=== PATIENT | female | born 1965 | race African-American/Black ===

== ENCOUNTER 2018-06-08 09:51 | Emergency (ER) | payer OTHER, SELFPAY ==
[2018-06-08 09:52] VITALS: BP 117/82; PULSE 76; RESP 18; TEMP 36.6; O2SAT 99; BMI 29.4
--- NOTE | 2018-06-08 10:18 | RAD_ITS ---
STUDY: X-RAY - LEFT KNEE REASON FOR EXAM: Female, 53 years old. Left-sided knee pain after twisting injury last evening. TECHNIQUE: 4 view(s) of the knee. COMPARISON: Prior comparison studies are not available for review at this time. FINDINGS: Normal visualized distal femur. Normal visualized proximal tibia and fibula. Normal proximal tibiofibular articulation. There is no demonstrated fracture. Normal medial femorotibial compartment. Normal lateral femorotibial compartment. Normal patellofemoral articulation. There is no demonstrated joint effusion. The soft tissue structures are unremarkable. RAD/Knee 4 or More Views IMPRESSION: No radiographic evidence for acute fracture. If there is still clinical concern for acute fracture, follow-up radiographs in 7-10 days maybe helpful in evaluating a healing radiographically occult fracture. Electronically Signed: Cinthya Garcia MD at 10:51 EDT , Service support ,
--- NOTE | 2018-06-08 10:29 | ED.DCSUM_ITS ---
History of Present Illness Chief Complaint: Lower Extremity Injury Informant: Patient Onset: Yesterday Context: Sudden Onset Timing: Continuous Quality: ache Location: left knee Current Severity: Moderate Maximum Severity: Severe Worsened by: moving/WBing Relieved by: remaining still Associated Symptoms: none Narrative: Tripped on a basketball accidentally last night, twisting her knee. She did not fall onto it or injure anything else. Since then she has had significant difficulty walking. Prior knee pain but nothing like this. No prior surgery on it. She states majority of the pain is popliteal. She does not describe any deformity. Past Medical History - Allergies and Home Meds Allergies/Adverse Reactions: Allergies orphenadrine citrate [From Norflex] Allergy (Verified 06/08/18 09:53) Chest tightness Penicillins Allergy (Verified 06/08/18 09:53) Unknown Primary Care Physician: Care Physician,No Primary [NON-STAFF] - Smoking Status: Current every day smoker Review of Systems Musculoskeletal: Reports: Extremity Pain - Left knee. Denies: Back pain, Swelling Skin: Denies: Rash Neurological: Denies: Headache, Weakness, Parasthesia, Numbness Physical Exam Vital Signs/Narrative: Vital Signs Temp Pulse Resp BP Pulse Ox 06/08/18 09:52 98 F 76 18 117/82 H 99 Inital Vital Signs reviewed: Yes General: Well nourished, Well developed Head: Normocephalic, Atraumatic Cardiovascular: - - Strong 2+ dorsalis pedis pulses bilaterally. Extremities: Tenderness - Throughout popliteal fossa left knee, nonfocal, including hamstring tendons. No bony tenderness., - - No left knee effusion. Extensor mechanism intact, but is more painful to perform. Able to extend her completely, passively. All ligaments are intact and stable without pain or laxity on stressing including a negative John. Limited active range of josef on to significant degree due to pain. Skin: Normal color, No rash Neurological: Alert, Oriented x3, Cranial nerves II-XII grossly intact, Normal Strength, Normal Sensation Psychological: Normal affect Diagnostic/Tx/Re-eval Clinical Impression(s) from Imaging Studies Knee X-Ray 06/08/18 10:18 IMPRESSION: No radiographic evidence for acute fracture. If there is still clinical concern for acute fracture, follow-up radiographs in 7-10 days maybe helpful in evaluating a healing radiographically occult fracture. Electronically Signed: Cinthya Garcia MD at 10:51 EDT , Service support , - Medical Decision Making X-rays are unremarkable. No focal ligament concern at this time. She hence at the possibility of having a Benz's cyst in the past, but she does not remember what it was called, it is possible that she ruptured a Benz's cyst. Emergent ultrasound is not indicated at this time, it is also possible that she injured the meniscus. I recommend supportive care along with rest, ice, NSAIDs, and close outpatient follow-up, she has seen orthopedics Dr. Walsh. She is given an Henry wrap and declines crutches saying that she has access to some. Given h istory, I do not have specific concern for a knee dislocation. ED Disposition - Plan for ED Patient: Disposition: Home or Assisted Living Chief Complaint: Lower Extremity Injury Diagnosis: Left knee sprain Instructions: ED Sprain Knee Prescriptions: Hydrocodone Bitart/Apap 5-325 [[facility] 5MG-325MG] 1 tab PO Q4H PRN PRN 2 Days #10 tab PRN Reason: Pain Referrals: Jorge Walsh MD [STAFF PHYSICIAN] - 1-2 Weeks
[2018-06-08 12:14] VITALS: BP 118/75; PULSE 75; RESP 16; O2SAT 98
== END 2018-06-08 12:15 | disposition home or self-care (01) ==
PROVIDERS: Emergency Provider Emergency Medicine; Family Provider Physician Assistant; PCP Physician Assistant
DX: S83.92XA Sprain of unspecified site of left knee, initial encounter (principal); X50.1XXA Overexertion from prolonged static or awkward postures, initial encounter; Y93.67 Activity, basketball; Y92.9 Unspecified place or not applicable; Y99.9 Unspecified external cause status; F17.200 Nicotine dependence, unspecified, uncomplicated; Z79.84 Long term (current) use of oral hypoglycemic drugs; Z79.899 Other long term (current) drug therapy
CPT/HCPCS: 73564; 99282

== ENCOUNTER 2019-04-02 00:53 | Observation (INO) | payer OTHER, SELFPAY ==
[2019-04-02] VITALS (9 sets, daily range): BP systolic 120–148; BP diastolic 66–79; PULSE 64–79; RESP 13–18; TEMP 36.4–36.6; O2SAT 96–100; BMI 30.9; BMI 29.4; BMI 31.0
--- NOTE | 2019-04-02 00:59 | EKG12_ITS ---
Test Reason : CP Blood Pressure : / mmHG Vent. Rate : 077 BPM Atrial Rate : 077 BPM P-R Int : 170 ms QRS Dur : 082 ms QT Int : 370 ms P-R-T Axes : 070 014 -05 degrees QTc Int : 418 ms Normal sinus rhythm Normal ECG Confirmed by DONNA KILLIAN ([id number]), graphics editor ALBERT CHA ([id number]) on 04/02/2019 2:30:42 PM Referred By: Minh Croft Confirmed By:DONNA KILLIAN
--- NOTE | 2019-04-02 00:59 | RAD_ITS ---
STUDY: X-RAY CHEST REASON FOR EXAM: Female, 54 years old. Chest pain TECHNIQUE: Single AP portable view of the chest. COMPARISON: None. FINDINGS: The lungs are clear and expanded. There is no demonstrated pleural abnormality. Normal size heart. Normal mediastinum and sudha. Normal visualized pulmonary arteries. Normal visualized aortic arch and descending thoracic aorta. Normal visualized thoracic spine. There is degenerative osteoarthritis of the bilateral shoulders. There is no demonstrated abnormality of the visualized soft tissue structures of the upper abdomen. RAD/Chest 1 View (Portable) IMPRESSION: Normal x-ray examination of the chest. Electronically Signed: Giuliana Wright, at 2:33 EDT Tel , Service support ,
[2019-04-02 01:10] LABS: Absolute Lymphocyte Count 4.99 X10^3/uL (0.83-4.51); Absolute Neutrophil Count 5.8 X10^3/uL (2.0-7.7); Basophil# 0.05 X10^3/uL; Basophil% 0.4 % (0-1); Eosinophils% 1.7 % (0-5); Hematocrit 42.3 % (37-47); Hemoglobin 14.2 g/dL (12.0-15.0); Lymphocyte # 4.99 X10^3/ul (4.0); Lymphocyte % 41.3 % (19-41); Mean Corp Hgb Conc 33.6 g/dL (32-36); Mean Corpuscular Volume 89.4 fL (81-99); Mean Platelet Vol. 8.8 fl (6.2-12.0); Monocyte# 0.97 X10^3/uL; NRBC Flagged by Analyzer 0 % (0-5); Neutrophil # 5.84 X10^3/uL (2.7-7.7); Neutrophil % 48.3 % (47-70); Platelet Count 337 K/mm3 (150-450); RBC Distribution Width CV 11.9 % (11.6-14.6); RBC Distribution Width SD 38.9 fl (35.1-43.9); Red Blood Count 4.73 M/mm3 (4.2-5.4); White Blood Count 12.1 K/mm3 (4.4-11.0)
[2019-04-02 01:33] LABS: Anion Gap 5 (5-15); BUN 7 mg/dL (7-18); BUN/Creat Ratio 7.9 RATIO (10-20); Calcium,Total 9.6 mg/dL (8.5-10.1); Chloride 105 mmol/L (98-107); Creatinine, Serum 0.89 mg/dL (0.55-1.02); EST Glomerular Filtration Rate 70 mL/min (>60); Est Glom Filt Rate - Afr Amer 85 mL/min (>60); Estimated Creatinine Clearance 76.32 ml/min; Glucose 143 mg/dL (74-106); Potassium 3.6 mmol/L (3.5-5.1); Sodium Level 139 mmol/L (136-145)
[2019-04-02] MEDS: Aspirin 325 MG Tablet PO (01:35)
--- NOTE | 2019-04-02 02:44 | PCM.HP.STD ---
Problem List (1) Chest pain Status: Acute History of Present Illness Date of Admission: 04/02/19 Chief Complaint: chest pain The patient is a 54 year old F with a significant history of hypertension; diabetes mellitus; seasonal allergy who presented to the emergency department with excruciating progressively worsening substernal chest pain that started while watching TV. Her symptoms started about 1/2-hour prior to presentation. Her chest pain was nonradiating. She denies any ameliorating or aggravating factors. Associated with her symptoms is nausea without vomiting; and diaphoresis. At the emergency department patient was given 325 mg of aspirin. Her chest pains had subsided to 2 out of 10 at the emergency department. Past Medical History Medical History: Medical History (Last Reviewed 04/02/19 @ 05:13 by Minh Croft MD) Type 2 diabetes mellitus E11.9 Hypertension I10 Allergies orphenadrine citrate [From Norflex] Allergy (Verified 04/02/19 00:54) Chest tightness Penicillins Allergy (Verified 04/02/19 00:54) Unknown Home Medications: Ambulatory Orders Medication Instructions Recorded Atenolol [Tenormin] 50 mg PO DAILY 08/14/15 Gabapentin [Neurontin] 100 mg PO QHS PRN PRN 08/14/15 Loratadine [Claritin] 10 mg PO DAILY 08/14/15 Potassium Chloride [K-Dur] 10 meq PO BID 08/14/15 Pravastatin [Pravachol] 20 mg PO DAILY 08/14/15 metFORMIN HCl [Glucophage] 500 mg PO DAILY 08/14/15 Surgical History: hysterectomy Lives: With Family Smoking Status: Never smoker - Patient smokes for about 1 week;never again - *Family History Maternal History Items: Diabetes, - - His brother has sarcoidosis Paternal History Items: - - Patient did not know her paternal medical history. Review of Systems Constitutional: Denies: Chills, Fever, Weight Change HEENT: Denies: Head Aches, Sinus Congestion, Sinus Drainage Cardiovascular: Reports: Chest Pain. Denies: Palpitations Respiratory: Denies: Cough, Shortness of breath at rest, Sputum production Gastrointestinal: Reports: Nausea. Denies: Abdominal Pain, Vomiting Genitourinary: Denies: Dysuria Musculoskeletal: Denies: Joint Pain, Joint Tenderness Skin: Denies: Rash, Wounds Neurological: Denies: Numbness, Tingling, Focal weakness Psychiatric: Denies: Anxiety, Depression, Homicidal Ideations, Suicidal Ideations Hematologic/ Lymphatic: Denies: Easy Bruising, Easy Bleeding VTE Information - Inpt Only VTE Present on Admission: No VTE Mechan Device Prophylaxis: None VTE Pharm Prophylaxis ordered?: Yes - Physical Exam General: Alert, Oriented x3, Cooperative HEENT: Atraumatic, PERRLA, EOMI, Normocephalic Neck: Supple, No JVD, Negative Carotid Bruits Lungs: Clear to auscultation, Normal air movement Cardiovascular: Regular rate, No murmurs Abdomen: Bowel Sounds Present, Soft, Non Tender Extremities: No edema, Capillary Refill Less than 3 Seconds Skin: No rashes, No breakdown Musculoskeletal: No Tenderness to Palpation of Joints or Extremities Neurological: Cranial nerves II-XII grossly intact Psych/Mental Status: Normal Affect, Appropriate Vital Signs Temp Pulse Resp BP Pulse Ox 97.9 F 70 13 136/79 H 96 04/02/19 00:54 04/02/19 02:20 04/02/19 02:20 04/02/19 02:23 04/02/19 02:20 Oxygen Flow Rate (L/min) 2 Oxygen Delivery Method Room Air Weight: 97.9 kg Body Mass Index (BMI) 30.9 Laboratory Tests Past 24 Hrs 04/02/19 04/02/19 01:03 01:03 WBC 12.1 H RBC 4.73 Hgb 14.2 Hct 42.3 MCV 89.4 MCH 30.0 MCHC 33.6 RDW Std Deviation 38.9 RDW Coeff of Alejandro 11.9 Plt Count 337 MPV 8.8 Immature Gran % (Auto) 0.300 Neut % (Auto) 48.3 Lymph % (Auto) 41.3 H [place] % (Auto) 8.0 Eos % (Auto) 1.7 Baso % (Auto) 0.4 Absolute Neuts (auto) 5.8 Absolute Lymphs (auto) 4.99 H Nucleated RBC % 0 Sodium 139 Potassium 3.6 Chloride 105 Carbon Dioxide 29.0 Anion Gap 5 BUN 7 Creatinine 0.89 Estim Creat Clear Calc 76.32 Est GFR (MDRD) Af Amer 85 Est GFR (MDRD) Non-Af 70 BUN/Creatinine Ratio 7.9 L Glucose 143 H Calcium 9.6 Troponin I < 0.015 Assessment/Plan All Active Problems (Last Updated 04/02/19 @ 03:32 by Minh Croft MD) Chest pain (Acute) The patient is a 54 year old F with a significant history of hypertension; diabetes mellitus; seasonal allergy who presented to the emergency department with excruciating progressively worsening substernal chest pain . Chest pain Admit to a monitored bed on pcu CXR independently reviewed confirms no acute cardiopulmonary process. EKG independently reviewed confirms sinus rhythm Received aspirin 325 mg in the emergency department. ASA 81 mg p.o. daily Morphine as needed for pain We will check lipid panel. Home statin continued Serial cardiac enzymes Stat EKG as needed for chest pain Treadmill stress test in the AM if the cardiac enzymes are negative. Hold atenolol for stress test. Leukocytosis: on presentation her white count was 12.1. Likely reactive. Hyperlipidemia Pravachol continued History of hypokalemia Home potassium chloride continued. On presentation his potassium is 3.6. We will give an extra dose of 20 mg of potassium x1. Seasonal allergies Claritin continued Neuropathy Neurontin continued Hypertension Presentation her blood pressure was not within goal. Continue home atenolol but hold for stress test. PRN hydralazine ordered. Trend blood pressure and adjust blood pressure medication. Diabetes mellitus On presentation her blood glucose on BMP was 143. Patient reports that his last A1c was 2 to 3 weeks ago and it was 6.5. Hold metformin since it is too early in admission. Check Accu-Chek every 6 hours. Consider insulin regimen if blood glucose is elevated. DVT prophylaxis Subcutaneous Lovenox ordered Code Visit OBSV E&M: 57442 Initial observation care L3
--- NOTE | 2019-04-02 02:55 | ED.VISSUMM ---
- ER Visit Summary Date of Service: 04/02/19 Chief Complaint: Chest pain History of Present Illness: The patient is a 54 F presenting with chest pain that started half hour prior to arrival. Patient has midsternal chest pain with no radiation. She denies shortness of breath. She has associated diaphoresis. She was resting when this started. She denies PE/DVT risk factors. She is a diabetic. She is a non-smoker. Denies other complaints. Physical Examination: Vitals are stable. Patient is afebrile. Alert no acute distress. HEENT exam is unremarkable. Neck is supple. Lungs are clear and equal bilaterally. Heart is regular rate and rhythm. Abdomen is soft nontender nondistended. Extremities are unremarkable. Skin is warm and dry. No focal neurologic deficit. Remainder of exam is unremarkable. Emergency Department Course and Treatment: Patient was given aspirin on arrival. EKG is sinus rhythm rate of 77 with no acute ischemic changes. Chest x-ray shows no acute process. CBC shows white count 12.1. Chemistries show glucose 143. Troponin is negative. On reevaluation patient's pain has improved. Discussed with the hospitalist for observation. Disposition: Observation Impression: Chest pain This note was generated with [employer] dictation software. It may contain incorrect words, spelling, and punctuation that were not noted in review of the chart prior to signing ED Disposition - Plan for ED Patient: Referrals: Max Arizmendi PA [Primary Care Provider] -
--- NOTE | 2019-04-02 03:25 | EKG12_ITS ---
Test Reason : CP ADMISSION Blood Pressure : / mmHG Vent. Rate : 061 BPM Atrial Rate : 061 BPM P-R Int : 194 ms QRS Dur : 086 ms QT Int : 404 ms P-R-T Axes : 031 005 003 degrees QTc Int : 406 ms Normal sinus rhythm Minimal voltage criteria for LVH, may be normal variant Nonspecific ST and T wave abnormality Confirmed by MARY GREENFIELD, INGRID ([id number]), web editor CONTRERAS SPRINGER ([id number]) on 04/04/2019 9:13:19 AM Referred By: Minh Croft Confirmed By:INGRID HERNANDEZ MD
[2019-04-02 05:11] LABS: Cholesterol 162 mg/dL (200); High Density Lipoprotein 46 mg/dL; Triglycerides 192 mg/dL; Very Low Density Lipoprotein 38 mg/dL (5-40)
[2019-04-02 06:06] LABS: Bedside Glucose 134 mg/dL (70-110)
--- NOTE | 2019-04-02 10:00 | STRESSREP ---
Stress Test Report Date: 04-02-19 Procedure: Exercise tolerance test/imaging study Indications: Chest pain Consent: Per the patient Procedure: The patient exercised on a Franco protocol for 5 minutes and 30 seconds completing Stage I and 1 minute and 30 seconds of Stage II achieving a peak heart rate of 146 bpm (89 % predicted maximal heart rate) with a peak blood pressure 220/60 mmHg and a peak MET capacity of 7 METs. The baseline ECG demonstrated normal sinus rhythm; nonspecific ST/T wave abnormality. The peak exercise ECG demonstrated somatic/motion artifact with continued nonspecific ST/T wave abnormality. There were no cardiac dysrhythmias pretest, during exercise, or recovery. The functional capacity was considered decreased. There was no complaint of chest discomfort during exercise or recovery. The examination was discontinued secondary to dyspnea. Impression: 1. Technically adequate (percent predicted maximal heart rate greater than 85%) exercise tolerance test 2. Peak exercise ECG with somatic/motion artifact with continued nonspecific ST/T wave abnormality 3. There were no cardiac dysrhythmias pretest, during exercise, or recovery 4. Nuclear images pending Myocardial perfusion imaging study: Technique: The patient was injected with 13.8 mCi of technetium 99m Cardiolite and subsequently rest SPECT Cardiolite nuclear imaging was obtained in the horizontal long, vertical long, and short axis views. The patient exercised on a Franco protocol for 5 minutes and 30 seconds completing Stage I and 1 minute and 30 seconds of Stage II achieving a peak heart rate of 146 bpm (89 % predicted maximal heart rate) with a peak blood pressure 220/60 mmHg and a peak MET capacity of 7 METs. The patient was injected with 41.9 mCi of technetium 99m Cardiolite and subsequently stress SPECT Cardiolite nuclear imaging was obtained in the horizontal long, vertical long, and short axis views. A gated Cardiolite study at peak stress was obtained. Interpretation: Rest and stress SPECT Cardiolite nuclear imaging status post realignment, normalization, and attenuation correction, demonstrates the appearance of relative uniform tracer uptake and myocardial perfusion appearing within normal limits. There is end systolic thickening and brightening. The gated Cardiolite study demonstrates myocardial thickening and inward wall motion. The reported LVEF is 82 %. Impression: 1. Rest and stress SPECT Cardiolite nuclear imaging demonstrate relative uniform tracer uptake and myocardial perfusion appearing within normal limits. 2. The gated Cardiolite study reports an LVEF of 82 %. This note was generated with Dragon dictation software. It may contain incorrect words, spelling, and punctuation that were not noted in checking the note before signing.
[2019-04-02] MEDS: Loratadine 10 MG Tablet PO (10:16)
[2019-04-02] MEDS: Atenolol 50 MG Tablet PO (10:17)
--- NOTE | 2019-04-02 11:11 | DCINST_ITS ---
You will use the following diet at home:: Calorie/Carbohydrate Controlled (specify 1200, 1400, etc) Discharge Activity: Return to Normal Activity Call your doctor if you observe: Shortness of breath, Dizziness, Fainting spells, Swelling in the ankles, Chest pain Allergies/Adverse Reactions: Allergies orphenadrine citrate [From Norflex] Allergy (Verified 04/02/19 03:31) Chest tightness Penicillins Allergy (Verified 04/02/19 03:31) Unknown Medications to take at Discharge Atenolol [Tenormin] 50 mg PO DAILY 08/14/15 Gabapentin [Neurontin] 100 mg PO QHS PRN PRN 08/14/15 Loratadine [Claritin] 10 mg PO DAILY 08/14/15 Potassium Chloride [K-Dur] 10 meq PO BID 08/14/15 Pravastatin [Pravachol] 20 mg PO DAILY 08/14/15 metFORMIN HCl [Glucophage] 500 mg PO DAILY 08/14/15 Primary Care Physician: Max Arizmendi PA [Primary Care Provider] - Please follow up with your Primary Care Physician in: 1 Week Test Results: Test results from this visit will be discussed in further detail at your follow- up appointment, if applicable. Proposed Discharge Date: 04/02/19
--- NOTE | 2019-04-02 11:12 | PCM.DC.SUM ---
<Dina Miller - Last Filed: 04/02/19 11:30> Discharge Date and Diagnosis Date of Admission: 04/02/19 Date of Discharge: 04/02/19 - Primary Discharge Diagnosis 1. Chest pain, ACS ruled out 2. Hyperlipidemia 3. Hypertension 4. 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 Obesity Hospital Course and Treatment Imaging Results: Diagnostic Data Chest X-Ray 04/02/19 00:59 IMPRESSION: Normal x-ray examination of the chest. Electronically Signed: Giuliana Wright, at 2:33 EDT Tel , Service support , Operations: None Procedures: Stress test Summary of Care Provided: The patient is a 54 year old F admitted 04/02/19 due to chest pain. 1. Chest pain, ACS ruled out- Troponin negative. EKG without ST-T changes. Stress test without evidence of ischemia. Given epigastric discomfort, will begin Protonix 40 mg daily. If no improvement, discussed with patient that she may discontinue this. Follow up with PCP in 1 week. 2. Hyperlipidemia- continue statin regimen. 3. Hypertension- stable, continue home atenolol regimen. 4. 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 5. Obesity- encouraged diet and lifestyle modifications. Patient seen and examined prior to discharge. Physical assessment as noted below. Patient is stable for discharge with follow up recommendations as noted above. This patient was seen by МАРИНА Koenig under the supervision of Dr. Ramirez. - Physical Exam General: Alert, Oriented x3, Cooperative HEENT: Atraumatic, PERRLA, EOMI, Normocephalic Neck: Supple, No JVD, Negative Carotid Bruits Lungs: Clear to auscultation, Normal air movement Cardiovascular: Regular rate, Regular Rhythm, Normal S1, Normal S2, No murmurs Abdomen: Bowel Sounds Present, Soft, Non Tender, Non-Distended, Obese Extremities: No clubbing, No cyanosis, No edema, Capillary Refill Less than 3 Seconds Skin: No rashes, No breakdown Musculoskeletal: No Tenderness to Palpation of Joints or Extremities Neurological: Cranial nerves II-XII grossly intact, Neuro grossly intact Psych/Mental Status: Normal Affect, Appropriate Vital Signs Temp Pulse Resp BP Pulse Ox 97.6 F L 73 18 120/66 97 04/02/19 10:15 04/02/19 10:15 04/02/19 10:15 04/02/19 10:15 04/02/19 10:15 Oxygen Flow Rate (L/min) 2 Oxygen Delivery Method Room Air Weight: 211 lb 3.245 oz Body Mass Index (BMI) 29.4 Intake and Output for Last 24 Hours 03/31/19 04/01/19 04/02/19 23:59 23:59 23:59 Intake Total 120 / 120 Balance 120 / 120 Laboratory Tests Past 24 Hrs 04/02/19 04/02/19 04/02/19 01:03 01:03 04:28 WBC 12.1 H RBC 4.73 Hgb 14.2 Hct 42.3 MCV 89.4 MCH 30.0 MCHC 33.6 RDW Std Deviation 38.9 RDW Coeff of Alejandro 11.9 Plt Count 337 MPV 8.8 Immature Gran % (Auto) 0.300 Neut % (Auto) 48.3 Lymph % (Auto) 41.3 H [place] % (Auto) 8.0 Eos % (Auto) 1.7 Baso % (Auto) 0.4 Absolute Neuts (auto) 5.8 Absolute Lymphs (auto) 4.99 H Nucleated RBC % 0 Sodium 139 Potassium 3.6 Chloride 105 Carbon Dioxide 29.0 Anion Gap 5 BUN 7 Creatinine 0.89 Estim Creat Clear Calc 76.32 Est GFR (MDRD) Af Amer 85 Est GFR (MDRD) Non-Af 70 BUN/Creatinine Ratio 7.9 L Glucose 143 H Calcium 9.6 Troponin I < 0.015 < 0.015 Triglycerides 192 Cholesterol 162 LDL Cholesterol 78 VLDL Cholesterol 38 HDL Cholesterol 46 04/02/19 06:52 WBC RBC Hgb Hct MCV MCH MCHC RDW Std Deviation RDW Coeff of Alejandro Plt Count MPV Immature Gran % (Auto) Neut % (Auto) Lymph % (Auto) [place] % (Auto) Eos % (Auto) Baso % (Auto) Absolute Neuts (auto) Absolute Lymphs (auto) Nucleated RBC % Sodium Potassium Chloride Carbon Dioxide Anion Gap BUN Creatinine Estim Creat Clear Calc Est GFR (MDRD) Af Amer Est GFR (MDRD) Non-Af BUN/Creatinine Ratio Glucose Calcium Troponin I < 0.015 Triglycerides Cholesterol LDL Cholesterol VLDL Cholesterol HDL Cholesterol POC Glucose 04/02/19 06:01 POC Glucose 134 H Discharge Diet: Low fat/ Low Cholesterol, Carb Control Diet Discharge Activity: Return to Normal Activity Call your doctor if you observe: Shortness of breath, Dizziness, Fainting spells, Swelling in the ankles, Chest pain Home Medications: Medications to take at Discharge Atenolol [Tenormin] 50 mg PO DAILY 08/14/15 Gabapentin [Neurontin] 100 mg PO QHS PRN PRN 08/14/15 Loratadine [Claritin] 10 mg PO DAILY 08/14/15 Potassium Chloride [K-Dur] 10 meq PO BID 08/14/15 Pravastatin [Pravachol] 20 mg PO DAILY 08/14/15 metFORMIN HCl [Glucophage] 500 mg PO DAILY 08/14/15 Pantoprazole Sodium [Protonix] 40 mg PO DAILY #30 tab 04/02/19 Following Prescrptions Were Given to Patient: Pantoprazole Sodium [Protonix] 40 mg PO DAILY #30 tab Transmission Status: Received by [facility] Primary Care Physician: Max Arizmendi PA [Primary Care Provider] - Please follow up with your Primary Care Physician in: 1 Week Disposition: Home Minutes spent on discharge:: 35 Patient Condition:: Stable Medical Necessity - Tobacco Use Smoking Status: Never smoker - Patient smokes for about 1 week;never again Meaningful Use Info Meaningful Use Diagnoses (Choose all that apply): None applicable <Israel Ramirez F - Last Filed: 04/02/19 11:54> Hospital Course and Treatment Imaging Results: 04/02/19 05:55 Nuclear Stress Test - Treadmil [NM] AM (NON MEDS) Summary of Care Provided: The patient is a 54 year old F [] - Physical Exam Vital Signs Temp Pulse Resp BP Pulse Ox 97.6 F L 73 18 120/66 97 04/02/19 10:15 04/02/19 10:15 04/02/19 10:15 04/02/19 10:15 04/02/19 10:15 Oxygen Flow Rate (L/min) 2 Oxygen Delivery Method Room Air Weight: 211 lb 3.245 oz Body Mass Index (BMI) 29.4 Intake and Output for Last 24 Hours 03/31/19 04/01/19 04/02/19 23:59 23:59 23:59 Intake Total 120 / 120 Balance 120 / 120 Laboratory Tests Past 24 Hrs 04/02/19 04/02/19 04/02/19 01:03 01:03 04:28 WBC 12.1 H RBC 4.73 Hgb 14.2 Hct 42.3 MCV 89.4 MCH 30.0 MCHC 33.6 RDW Std Deviation 38.9 RDW Coeff of Alejandro 11.9 Plt Count 337 MPV 8.8 Immature Gran % (Auto) 0.300 Neut % (Auto) 48.3 Lymph % (Auto) 41.3 H [place] % (Auto) 8.0 Eos % (Auto) 1.7 Baso % (Auto) 0.4 Absolute Neuts (auto) 5.8 Absolute Lymphs (auto) 4.99 H Nucleated RBC % 0 Sodium 139 Potassium 3.6 Chloride 105 Carbon Dioxide 29.0 Anion Gap 5 BUN 7 Creatinine 0.89 Estim Creat Clear Calc 76.32 Est GFR (MDRD) Af Amer 85 Est GFR (MDRD) Non-Af 70 BUN/Creatinine Ratio 7.9 L Glucose 143 H Calcium 9.6 Troponin I < 0.015 < 0.015 Triglycerides 192 Cholesterol 162 LDL Cholesterol 78 VLDL Cholesterol 38 HDL Cholesterol 46 04/02/19 06:52 WBC RBC Hgb Hct MCV MCH MCHC RDW Std Deviation RDW Coeff of Alejandro Plt Count MPV Immature Gran % (Auto) Neut % (Auto) Lymph % (Auto) [place] % (Auto) Eos % (Auto) Baso % (Auto) Absolute Neuts (auto) Absolute Lymphs (auto) Nucleated RBC % Sodium Potassium Chloride Carbon Dioxide Anion Gap BUN Creatinine Estim Creat Clear Calc Est GFR (MDRD) Af Amer Est GFR (MDRD) Non-Af BUN/Creatinine Ratio Glucose Calcium Troponin I < 0.015 Triglycerides Cholesterol LDL Cholesterol VLDL Cholesterol HDL Cholesterol POC Glucose 04/02/19 06:01 POC Glucose 134 H Code Visit Addendum: Dr. Ramirez I personally examined the patient and reviewed the chart. I agree with the above. 4-year-old female presenting with substernal chest pain and diaphoresis presented to the hospital with concerns for ACS. She was found to have 3 normal troponins and an EKG without any acute ST changes. She underwent stress testing today which was normal. In discussing this with her she thought that she could possibly have reflux and therefore she was started on Protonix. If there was not any improvement after 12 weeks of use she could discontinue this but she needs to follow-up with her primary care doctor in 1 week. OBSV E&M: 22985 Observation care discharge
== END 2019-04-02 11:11 | disposition home or self-care (01) ==
LOC: ED 01:45 → PCU 04:00
PROVIDERS: Admitting Provider Hospitalist; Emergency Provider Emergency Medicine; Family Provider Physician Assistant; PCP Physician Assistant; Referring Provider Hospitalist; Visit Provider Family Medicine
DX: R07.89 Other chest pain (principal); I10 Essential (primary) hypertension; E78.5 Hyperlipidemia, unspecified; E11.40 Type 2 diabetes mellitus with diabetic neuropathy, unspecified; E87.6 Hypokalemia; E66.9 Obesity, unspecified; Z68.29 Body mass index [BMI] 29.0-29.9, adult; Z71.3 Dietary counseling and surveillance; Z79.899 Other long term (current) drug therapy; Z79.84 Long term (current) use of oral hypoglycemic drugs
CPT/HCPCS: 36415; 71045; 78452; 80048; 80061; 82962; 84484; 85025; 93005; 93017; 99218; 99285; A9500; A4216; G0378

== ENCOUNTER → 2019-05-20 14:16 | Outpatient (CLI) | payer OTHER, SELFPAY ==
[2019-04-02 03:28] VITALS: BMI 29.4
--- NOTE | 2019-05-20 | LES_PTH ---
PATIENT: BROIS BONNER LOC: [facility] U#:[id number] AGE/SX: 60/F ROOM: RE05/20/[address]: Dr. Carlos Shelton MD : [id number] BED: DIS: SPEC #: [id number] RECD: 05/20/19 14:34 STATUS: EDINSON CATY #: [id number] ISABEL: 05/20/19 00:[address]: Carlos Shelton DEPT: SURGICAL PATHOLOGY RECD BY: Hugo Woods ENTERED: 05/20/19 14:35 SP TYPE: Lesion OTHR DR: JOSHUA Hinds Tissues: Skin of eyelid, NOS Procedures: Surgery Specimen Level IV HEADER OPERATION: Excision of lesion from left lower eyelid PRE-OP DIAGNOSIS: Cystic lesion, increased size, vascularity TISSUE SUBMITTED: Left lower eyelid MICROSCOPIC DIAGNOSIS Left lower eyelid lesion, biopsy: Consistent with eccrine cyst. AM:hermila 05/21/19 COMMENT Case has been reviewed in consultation with Dr. Quintana who concurs with the above diagnosis. IDC:SJ MICROSCOPIC DESCRIPTION Slides are reviewed. GROSS DESCRIPTION Received in fixative is one container labeled with the patient's name and designated left lower eyelid. The specimen consists of one irregular fragment of light ku soft tissue that measures 0.6 x 0.5 x 0.1 cm. The specimen is totally submitted in one cassette. / AM:hermila 05/20/19 TC:5 CPT: 79531
== END ==
PROVIDERS: Family Provider Physician Assistant; PCP Physician Assistant; Referring Provider Ophthalmology; Visit Provider Ophthalmology
DX: H02.89 Other specified disorders of eyelid (principal)
CPT/HCPCS: 88305

== ENCOUNTER 2023-06-21 15:30 | Outpatient (RCR) | payer OTHER, SELFPAY ==
--- NOTE | 2023-05-23 16:22 | HP.PTEVAL ---
Patient's Visit Information Visit Information Visit Information: BORIS BONNER is a 58 year old F referred to Physical Therapy by Dr. Jorge Walsh MD with a diagnosis of Left Frozen Shoulder. Date of Evaluation: 05/23/23 Physical Therapist: Nai Umaña DPT Visit Plan Frequency: 2x /Week Duration: 4 Weeks Plan: Manual Stretching, AAROM/AROM/PROM, pain mgmt HEP Given IE: pendulums, table walk aways, upper trap stretch, levator stretch Subjective Subjective: Patient reports that she has had left shoulder pain for several months- maybe 6 months- insidious onset- she sleeps on that arm- so she bought new pillows and tries not to sleep on that arm and that has not changed anything. She tried PT at [facility]- tried bands- had an x-ray and it showed frozen shoulder. The pain is in the back of the ear and radiates down to the shoulder and can radiate down to the wrist- depending on how much she uses the shoulder during the day. First thing in the AM she cant move it at all- so its better around 12-1 but then its bad again by the end of the day. Sleep: bed or recliner due to the pain. Worst: 8/10 Best: 5/10 Eases: rub it or be in the recliner. Right hand dominate. No SHARMA, blurred vision or dizziness. She stopped PT at [facility] in spring- she still does the exercises with the bands- mid row, IR/ER, and LAE with the bands no ROM exercises. Describes the pain as sharp and shooting and throbbing. 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 No MRI at this time- she has not had an injection in her shoulder due to fear of needles- she took an ant-inflammatory and Prednisone which she can't remember if it helped. No N/T in the hand. PMHx: Diabetic Meds: Metformin (A1c 6.5), Monjero Objective Objective: Posture: FH, RS- can correct but does not maintain- severe guarding of the left UE Gait: decreased arm swing of the left and trunk rotation Palpation: tender along upper trap from occiput to the AC joint to the medial border of the scapula- bicipital groove ROM: Cervical: WFL, Shoulder: AROM: Flexion: 40 degrees Abd: 30 degrees IR: to belt line, ER: 40 degrees PROM: Flexion: 50 degrees Abd: 40 degrees- all with severe guarding and pain Strength: Stripper Cutter Machine: weak Left, Elbow: 4+/5, Shoulder: Extn: 4-/5, Abd: 4-/5, Add: 4-/5, IR/ER: 4-/5, Flex: 4/5 all with mild discomfort, Scap: fair minus. Flex: UT: severe Levator: severe *SEVERE GUARDING AND PAIN Balance/Special Test Scores Quick DASH Score: 52.2725 Goals Goal 1:: Patient will be I with HEP and progression Goal Time Frame: 4-6 Weeks Goal 2:: Patient will demo full AROM of the left shoulder Goal Time Frame: 4-6 Weeks Goal 3:: Patient will maintain proper posture to demo increased scap s/s Goal Time Frame: 4-6 Weeks Goal 4:: Patient will report sleeping through the night for 1 week Goal Time Frame: 4-6 Weeks Goal 5:: Patient will report 80% improvement Goal Time Frame: 4-6 Weeks Rehabilitation Potential Physical Therapy Diagnosis: Patient presents with hypomobility- she has decreased UE ROM, scapular and UE strength/stabilization and muscular endurance leading to decreased ability to perform ADL's. Rehabilitation Potential: Good Anticipated Interventions Patient/Client Instruction: Educate patient on: Benefits of Fitness Program Therapeutic Exercise to Include: Strength training, Endurance training, Agility training, Body mechanics, Postural training, Flexibilty training, Neuromotor development, Passive ROM, Active ROM, Dynamic Lumbar Stabilization and Scapular Strength/Stabilization For the Purpose of:: To improve muscle performance and motor function Manual Therapy Techniques to Include: Mobilization, Passive ROM and Soft tissue mobilization TENS: Yes Cryotherapy (ice pack, ice massage): Yes Thermo therapy (hot pack): Yes Ultrasound (thermal/non thermal): Yes Text: Thank you for the opportunity to evaluate your patient. For Medicare and Medicare HMO plans, please review the plan of care and approve it. It will need to be FAXED BACK to us at [phone] for Medicare purposes. For Medicare only, by signing this I certify the plan of care. Please let me know if there are questions or concerns regarding this plan of care. Physician Signature: Date:
--- NOTE | 2023-08-23 09:27 | HP.PT.NRP ---
Patient Information Patient Information: BORIS BONNER was seen in my office for initial evaluation on 05/23/23. The following Plan of Care was established for this patient: POC Established Initial Frequency: 2x /Week Initial Duration: 4 Weeks Anticipated Interventions Patient/Client Instruction: Educate patient on: Benefits of Fitness Program Therapeutic Exercise to Include: Strength training, Endurance training, Agility training, Body mechanics, Postural training, Flexibilty training, Neuromotor development, Passive ROM, Active ROM, Dynamic Lumbar Stabilization and Scapular Strength/Stabilization For the Purpose of:: To improve muscle performance and motor function Manual Therapy Techniques to Include: Mobilization, Passive ROM and Soft tissue mobilization TENS: Yes Cryotherapy (ice pack, ice massage): Yes Thermo therapy (hot pack): Yes Ultrasound (thermal/non thermal): Yes Last Seen Last Seen: This patient was last seen in our office . Pertinent comments regarding their Physical therapy will appear below: Patient is appropriate to continue home exercise program and be discharged from PT At this point I will be discontinuing this patient from physical therapy. I would be happy to see this patient again in the future if found appropriate by the physician. Thank you! Nai Umaña, CHESTERT Balance/Gait/Functional tests Balance/Special Test Scores Quick DASH Score: [phone]
== END 2023-06-21 19:00 | disposition home or self-care (01) ==
LOC: PT 15:30
PROVIDERS: PCP Physician Assistant; Visit Provider Orthopaedic Surgery
DX: M25.512 Pain in left shoulder (principal); M75.02 Adhesive capsulitis of left shoulder; M25.812 Other specified joint disorders, left shoulder; G89.29 Other chronic pain
CPT/HCPCS: 97110; 97140; 97162